=== PATIENT | female | born 1970 | race Caucasian/White ===

== ENCOUNTER 2018-02-17 14:41 | Observation (INO) | payer OTHER ==
[~2018-02-17] VITALS: Ht 162.6 cm; Wt 114.3 kg
[~2018-02-17 14:41] MED LIST: LEVOTHYROXINE0.05 MG; NORVASC 5 MG TAB5 MG PO; PROZAC40 MG PO; ZOFRAN ODT4 MG PO
[2018-02-17 14:49] VITALS: BP 155/97
[2018-02-17] MEDS ORDERED: LISINOPRIL-HCT1 EAC2 PO (14:51)
[2018-02-17] MEDS ORDERED: ASPIR 8181 MG PO (14:51)
[2018-02-17 15:36] LABS: ABSOLUTE BASOPHILS 0.2 thou/uL (0.0-0.2); ABSOLUTE EOSINOPHILS 0.1 thou/uL (0.0-0.7); ABSOLUTE LYMPHOCYTES 3.3 thou/uL (0.8-5.3); ABSOLUTE NEUTROPHILS 7.9 thou/uL (1.6-8.1); BASOPHILS 1.3 %; EOSINOPHILS 0.9 %; HEMATOCRIT 48.5 % (37.0-47.0); HEMOGLOBIN 16.6 gm/dL (12.0-15.0); LYMPHOCYTES 26.6 %; MCH 30.7 pg (26.0-34.0); MCHC 34.2 g/dL (28.0-37.0); MCV 89.8 fL (80.0-100.0); MPV 9.7 fl. (7.2-11.1); NUCLEATED RBCS 0 /100WBC; PLATELET COUNT* 244 thou/uL (150-400); POLYS 63.2 %; RDW-CV 13.8 % (10.5-14.5); WBC 12.5 thou/uL (4.0-11.0)
[2018-02-17 15:40] LABS: URINE BILIRUBIN NEGATIVE (Negative); URINE BLOOD NEGATIVE (Negative); URINE CLARITY CLEAR; URINE COLOR YELLOW; URINE GLUCOSE-RANDOM NEGATIVE (Negative); URINE KETONES NEGATIVE (Negative); URINE LEUKOCYTES-REFLEX NEGATIVE (Negative); URINE NITRITE-REFLEX NEGATIVE (Negative); URINE PROTEIN NEGATIVE (Negative); URINE SPECIFIC GRAVITY 1.015 (1.005-1.030)
[2018-02-17 15:40] LABS: ANION GAP 8 mmol/L (7-16); BUN 13 mg/dL (7-18); CALCIUM 8.5 mg/dL (8.5-10.1); CHLORIDE 97 mmol/L (98-107); CO2 26 mmol/L (21-32); GLUCOSE 86 mg/dL (70-99); POTASSIUM 3.6 mmol/L (3.5-5.1); SODIUM 131 mmol/L (136-145)
[2018-02-17 15:47] LABS: ALBUMIN 3.8 g/dL (3.4-5.0); ALKALINE PHOSPHATASE 92 U/L (46-116); SGOT 16 U/L (15-37); SGPT 32 U/L (30-65); TOTAL BILIRUBIN 0.5 mg/dL (<0.1-1.0); TOTAL PROTEIN 7.3 g/dL (6.4-8.2); TROPONIN-I LEVEL <0.06 ng/mL (<0.06)
[2018-02-17 16:22] LABS: AMP/METHAMP Negative (Negative); BARBITURATES Negative (Negative); BENZODIAZEPINES Negative (Negative); COCAINE Negative (Negative); METHADONE Negative (Negative); OPIATES Negative (Negative); PCP Negative (Negative); THC POSITIVE (Negative)
[2018-02-17 18:02] VITALS: BP 121/76
[2018-02-17 18:16] VITALS: BP 161/74
[2018-02-17 19:40] VITALS: BP 121/66
[2018-02-18] VITALS: BP 97/74
[2018-02-18 04:00] VITALS: BP 153/69
[2018-02-18 05:03] LABS: MCH 30.4 pg (26.0-34.0); MCHC 33.3 g/dL (28.0-37.0); MCV 91.4 fL (80.0-100.0); MPV 10.3 fl. (7.2-11.1); RBC 5.25 mil/uL (4.20-5.00); RDW-CV 13.9 % (10.5-14.5); WBC 9.5 thou/uL (4.0-11.0)
[2018-02-18 05:21] LABS: ALBUMIN 3.6 g/dL (3.4-5.0); ALKALINE PHOSPHATASE 92 U/L (46-116); ANION GAP 8 mmol/L (7-16); BUN 11 mg/dL (7-18); CALCIUM 8.6 mg/dL (8.5-10.1); CHLORIDE 100 mmol/L (98-107); CO2 30 mmol/L (21-32); CREATININE 0.9 mg/dL (0.6-1.3); GLUCOSE 86 mg/dL (70-99); MAGNESIUM 2.1 mg/dL (1.8-2.4); SGOT 19 U/L (15-37); SGPT 34 U/L (30-65); SODIUM 138 mmol/L (136-145); TOTAL BILIRUBIN 0.6 mg/dL (<0.1-1.0); TOTAL PROTEIN 6.5 g/dL (6.4-8.2); TROPONIN-I LEVEL <0.06 ng/mL (<0.06)
[2018-02-18 07:16] VITALS: BP 170/92
[2018-02-18] MEDS ORDERED: LISINOPRIL-HCT1 EAC2 PO (12:23)
[2018-02-18] MEDS ORDERED: ARMOUR THYROID30 M1 PO (12:23)
[2018-02-18 12:29] VITALS: BP 178/88
[2018-02-18 14:48] VITALS: BP 178/88
[2018-02-18 15:40] VITALS: BP 137/77
--- NOTE | 2018-02-18 17:06 | EXE ---
[place] [address] STRESS ECHOCARDIOGRAM Name: YANIV GIL [address]: [address]#: [id number] Admission: 02/17/18 Attend Phys: Nancy Guardado, Discharge: Date of : 70 Date of Service: 02/18/18 1706 Report #: [id number] THIS REPORT FOR: //name// APPROVED REPORT Study performed: 02/18/2018 12:27:40 Exam: Dobutamine Stress Echo Indication: Chest pain Patient Location: In-Patient Stress Nurse: Irena Reeves RN Room #: [facility] Supervising Physician: Damaso Donaldson MD Status: routine Ht: 5 ft 4 in HR: 63 bpm BP: 129/83 mmHg Rhythm: NSR Medical History Cardiac Risk Factors: FHX of CAD, Tobacco History (Current/Recent), HTN Procedure The patient underwent a Pharmacological Stress Test using Dobutamine. Blood pressure, heart rate, and EKG were monitored. An Echocardiogram was performed by solid waste technician in four stages in quad fashion. At peak stress, four selected images were obtained and placed side by side with resting images for comparison. Stress Test Details Stress Test: Pharmacological Stress Test using Dobutamine. HR Resting HR: 63 bpm Max Heart Rate (APMHR): 173 bpm Max HR Achieved: 156 bpm Target HR (85% APMHR): 147 bpm % of APMHR: 90 Recovery HR: 98 bpm HR response to stress: Normal HR response to stress BP Resting BP: 129/83 mmHg Max BP: 201/73 mmHg Recovery BP: 142/80 mmHg BP response to stress: [place] [address] STRESS ECHOCARDIOGRAM Name: YANIV GIL Room: [address]#: [id number] Admission: 02/17/18 Attend Phys: Nancy Guardado, Discharge: Date of : 70 Date of Service: 02/18/18 1706 Report #: [id number] stress. ECG Resting ECG: Sinus Rhythm Stress ECG: Sinus Tachycardia ST Change: None Arrhythmia: None Recovery ECG: Sinus Rhythm Recovery ST Change: None Recovery Arrhythmia: None Clinical Reason for Termination: Completed protocol Stress Symptoms: Chest pain, Nausea The patient tolerated dobutamine infusion without significant symptoms. Stress ECG Conclusion The baseline EKG show sinus rhythm with no significant ST segment or T-wave abnormalities. EKG's obtained during and post dobutamine infusion show no significant TS segment or T-wave changes when compared to baseline EKG. There were no significant stress induced arrythmias. Pre-Stress Echo The resting Echocardiogram showed normal left ventricular contractility with an estimated Ejection Fraction of about 55-60%. Post-Stress Echo The stress Echocardiogram showed normal left ventricular contractility with an estimated Ejection Fraction of about >70%. Clinical No clinical or ECG evidence for ischemia. Conclusion Clinical Response: Non-ischemic Stress ECG Response: Non-ischemic Stress Echo Images: Non-ischemic The left ventricle is normal in size and wall thickness in both the rest and stress images. Other Information Study Quality: Good <Conclusion> [place] [address] STRESS ECHOCARDIOGRAM Name: YANIV GIL Room: [address]#: [id number] Admission: 02/17/18 Attend Phys: Nancy Guardado, Discharge: Date of : 70 Date of Service: 02/18/181705 Report #: [id number] The left ventricle is normal in size and wall thickness in both the rest and stress images. <ELECTRONICALLY SIGNED> By: Damaso Donaldson MD, FACC 02/18/181705 05 05 Damaso Donaldson MD, FACC /INF
--- NOTE | 2018-02-20 15:26 | EKG ---
[place] [address] ELECTROCARDIOGRAM REPORT Name: YANIV GIL Room: [address] MR.#: [id number] Admission: 02/17/18 Attend Phys: Nancy Guardado MD Discharge: 02/18/18 Date of : 70 Report #: [id number] THIS REPORT FOR: //name// [facility] ED Test Date: 2018-02-17 Test Time: 14:49:59 Pat Name: YANIV GIL Department: Room: [facility] Gender: F Epic Cupid Specialists: : 1970 Requested By: Stephanie Pierre Order Number: [id number] MD: Damaso Donaldson Measurements Intervals [place] Rate: 79 P: 28 [place]: 167 QRS: 30 QRSD: 118 T: 60 QT: 401 QTc: 460 Interpretive Statements Sinus rhythm Incomplete right bundle branch block Low voltage, precordial leads Baseline wander in lead(s) II,III,aVF,V3,V5 Compared to ECG 06/14/2013 18:58:20 Incomplete right bundle-branch block now present Low QRS voltage now present shortly Electronically Signed On 02-20-2018 15:26:22 BANKING ANALYST by Damaso Donaldson [email or web address] <ELECTRONICALLY SIGNED> By: Damaso Donaldson MD, FACC 02/20/18 1526 1449 1449 Damaso Donaldson MD, FAC /EPI
--- NOTE | 2018-02-20 15:31 | EKG ---
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: : 1970 Requested By: Alem Anderson Order Number: [id number] Javy MD: Damaso Donaldson Measurements Intervals [place] Rate: 65 P: 2 [place]: 148 QRS: 16 QRSD: 108 T: 47 QT: 440 QTc: 458 Interpretive Statements Sinus rhythm Abnormal R-wave progression, early transition Compared to ECG 06/14/2013 18:58:20 No significant changes Electronically Signed On 02-20-2018 15:30:46 FINISHED CARPET INSPECTOR by Damaso Donaldson [email or web address] <ELECTRONICALLY SIGNED> By: Damaso Donaldson MD, [facility]GED WITH [facility] 02/20/18 1530 0 Damaso Donaldson MD, [facility] /EPI
== END 2018-02-18 17:29 | disposition home or self-care (01) ==
LOC: M.ERS 14:41 → M.2W 17:04 → M.TBA-ER 17:04 → M.2W 18:12
PROVIDERS: Nurse Practitioner Family; ADMIT Internal Medicine
DX: R07.89 Other chest pain (principal); I16.0 Hypertensive urgency; E03.9 Hypothyroidism, unspecified; F41.9 Anxiety disorder, unspecified; I10 Essential (primary) hypertension; F12.90 Cannabis use, unspecified, uncomplicated; F17.210 Nicotine dependence, cigarettes, uncomplicated; Z72.89 Other problems related to lifestyle; Z91.19 Patient's noncompliance with other medical treatment and regimen; Z79.899 Other long term (current) drug therapy; Z79.82 Long term (current) use of aspirin

== ENCOUNTER 2018-09-10 22:22 | Emergency (ER) | payer OTHER ==
[~2018-09-10] VITALS: Ht 162.6 cm; Wt 113.4 kg
[~2018-09-10 22:22] MED LIST changes: +ARMOUR THYROID30 M1 PO; +ASPIR 8181 MG PO; +LISINOPRIL-HCT1 EAC2 PO
[2018-09-10 23:18] LABS: ABSOLUTE BASOPHILS 0.2 thou/uL (0.0-0.2); ABSOLUTE EOSINOPHILS 0.3 thou/uL (0.0-0.7); ABSOLUTE LYMPHOCYTES 3.3 thou/uL (0.8-5.3); ABSOLUTE MONOCYTES 0.9 thou/uL (0.0-1.2); ABSOLUTE NEUTROPHILS 7.4 thou/uL (1.6-8.1); BASOPHILS 1.3 %; EOSINOPHILS 2.7 %; HEMATOCRIT 48.8 % (37.0-47.0); HEMOGLOBIN 16.4 gm/dL (12.0-15.0); LYMPHOCYTES 27.3 %; MCH 30.3 pg (26.0-34.0); MCHC 33.7 g/dL (28.0-37.0); MCV 89.9 fL (80.0-100.0); MONOCYTES 7.6 %; MPV 9.8 fl. (7.2-11.1); NUCLEATED RBCS 0 /100WBC; PLATELET COUNT* 233 thou/uL (150-400); POLYS 61.1 %; RBC 5.43 mil/uL (4.20-5.00); RDW-CV 13.9 % (10.5-14.5); WBC 12.2 thou/uL (4.0-11.0)
[2018-09-10 23:21] LABS: CALCIUM 8.8 mg/dL (8.5-10.1); CREATININE 1.1 mg/dL (0.6-1.3); POTASSIUM 3.7 mmol/L (3.5-5.1)
[2018-09-10 23:26] LABS: ALBUMIN 3.8 g/dL (3.4-5.0); TOTAL BILIRUBIN 0.3 mg/dL (<0.1-1.0); TOTAL PROTEIN 7.3 g/dL (6.4-8.2)
[2018-09-11] MEDS ORDERED: FLEXERIL PO (00:17)
[2018-09-11] MEDS ORDERED: NORCO 5-325 TA1 EAC1 PO (00:17)
[2018-09-11 00:35] VITALS: BP 195/117
== END 2018-09-11 00:35 | disposition home or self-care (01) ==
LOC: M.ERS 22:22
PROVIDERS: Family Medicine
DX: M43.6 Torticollis (principal); I10 Essential (primary) hypertension; E07.9 Disorder of thyroid, unspecified; F17.210 Nicotine dependence, cigarettes, uncomplicated; Z88.5 Allergy status to narcotic agent; Z88.8 Allergy status to other drugs, medicaments and biological substances

== ENCOUNTER 2019-03-13 06:57 | Emergency (ER) | payer OTHER ==
[~2019-03-13] VITALS: Ht 162.6 cm; Wt 113.4 kg
[~2019-03-13 06:57] MED LIST changes: +FLEXERIL PO; +NORCO 5-325 TA1 EAC1 PO
[2019-03-13 08:04] LABS: INFLUENZA A ANTIGEN Positive (Negative); INFLUENZA B ANTIGEN Negative (Negative)
[2019-03-13] MEDS ORDERED: PROMETHAZINE-P118 M1 PO (08:31)
[2019-03-13 09:18] VITALS: BP 156/69
== END 2019-03-13 09:20 | disposition home or self-care (01) ==
LOC: M.ERS 06:57
PROVIDERS: Personal Emergency Response Attendant
DX: J09.X2 Influenza due to identified novel influenza A virus with other respiratory manifestations (principal); I10 Essential (primary) hypertension; F17.210 Nicotine dependence, cigarettes, uncomplicated; Z88.8 Allergy status to other drugs, medicaments and biological substances

== ENCOUNTER 2019-10-17 15:47 | Observation (INO) | payer OTHER ==
[~2019-10-17] VITALS: Ht 162.6 cm; Wt 116.4 kg
--- NOTE | ~2019-10-17 | OP ---
[address] [address] OPERATIVE REPORT Name: YANIV GIL Room: [address] Raciel#: [id number] Admission: 10/17/19 Attend Phys: Asif Clayton DO Discharge: Date of : 70 Report #: [id number] THIS REPORT FOR: //name// cc: ELICEO Zamarripa family physician/PCP ELICEO Zamarripa family physician/PCP ~ THIS REPORT FOR: //name// CC: Asif Clayton [facility] physician/PCP DICTATED BY: Kathy Key DO DATE OF SERVICE: 10/21/2019 PREOPERATIVE DIAGNOSIS: Biliary dyskinesia. POSTOPERATIVE DIAGNOSIS: Biliary dyskinesia. PRIMARY SURGEON: Asif Clayton DO LEAD NET SOFTWARE DEVELOPER: Kathy Key DO, PGY3 SECOND INFORMATION ASSURANCE MANAGER: Eugenio ____, MS3 PROCEDURE PERFORMED: Laparoscopic cholecystectomy. ANESTHESIA: General and local. ESTIMATED BLOOD LOSS: 20 mL. SPECIMEN REMOVED: Gallbladder. COMPLICATIONS: None. INDICATIONS FOR PROCEDURE: The patient is a pleasant 49-year-old female that presented to the Emergency Department with complaint of abdominal pain. Pain began 3 days prior to admission mostly in her right upper quadrant. She did have exacerbation of her pain with p.o. intake. She had a workup that included a CT scan and ultrasound, which were unremarkable, so hepatobiliary scan was ordered. She was noted to have gallbladder ejection fraction of 13%. It was recommended that she undergo a laparoscopic cholecystectomy. The procedure, risks, benefits, and possible complications to include bleeding, infection, injury to surrounding structures, need for open procedure, need for additional surgery, hernia at an incision site, risks of anesthesia, and other risks of surgery were all discussed with the patient in great detail. She voiced complete understanding and wished to proceed with surgery. [place] [id number] OPERATIVE REPORT Name: YANIV GIL Room: [address] Farooq Schrader#: [id number] Admission: 10/17/19 Attend Phys: Asif Clayton DO Discharge: Date of : 70 Report #: [id number] DESCRIPTION OF PROCEDURE: Informed consent was obtained. The patient was taken to the operating room and placed supine on the operating room table. General endotracheal anesthesia was induced without difficulty. SCDs were placed on bilateral lower extremities. Preoperative antibiotics were given. Abdomen was prepped and draped in the standard sterile fashion. A timeout was performed to ensure correct patient and procedure. We began by making a vertical supraumbilical incision using a #11 blade scalpel. The incision was carried down through the subcutaneous tissues using electrocautery. - was used to dissect further down to the level of fascia. Fascia was scored with electrocautery. Fascia was grasped between 2 Kochers and elevated. The fascia was further incised using electrocautery. Peritoneum was entered bluntly using a hemostat. The 0 Vicryl stay sutures were placed on either side of the fascial opening in a doxirj-ht-nlysq fashion. A 5-mm Berlin trocar was inserted through our fascial opening. Abdomen was insufflated without difficulty. Laparoscopic camera was inserted and a sweep of the anterior abdominal contents was performed. There were no obvious abnormalities on our initial sweep of the anterior abdominal contents. The patient was placed in the reverse Trendelenburg position with the left side down. A subxiphoid 5 mm trocar was inserted under direct visualization. Two right upper quadrant 5 mm trocars were inserted under direct visualization. The assistant store manager sales then grasped the fundus of the gallbladder and retracted it superiorly and anteriorly. Pizarro pouch was easily identified, this was grasped and the peritoneum overlying. Emilio pouch was scored with electrocautery. A combination of blunt dissection and a small amount of electrocautery were used to open up the peritoneum along the lateral aspect of the gallbladder. Once this was done, we turned our attention to the medial aspect of the gallbladder. We also opened up the peritoneum along this side of the gallbladder muscle using blunt dissection. Prior to beginning this dissection, we did use immunofluorescence imaging to identify the gallbladder, the cystic duct and the common bile duct. These were easily visualized and delineated using immunofluorescence imaging. As we continued our dissection, a [place] dissector was used to help bluntly dissect away the fatty tissues from our cystic duct and cystic artery. Cystic artery was identified in the expected position just posterior to the cystic duct. As we continued our blunt dissection to free the artery and duct from surrounding tissues, we did have a small amount of bleeding from the cystic artery. This was grasped with a [place] dissector and clipped with a 5 mm clip gymnastics coach. We then turned our attention to our cystic duct. [place] dissector and suction sales representative raw fibers were used to bluntly dissect a window posterior to our cystic duct. Once this was done and we had cleared off our cystic plate, we had achieved our critical view of safety, we could see that there were 2 and only two structures coursing into the gallbladder. We then placed 2 clips proximally on the cystic duct and one clip distally. The cystic duct was transected using laparoscopic scissors. The gallbladder was then removed from the liver bed using electrocautery, ensuring hemostasis along the way. We did have some slight spillage of bile during this process. Suction sales representative raw fibers was used to copiously irrigate [place] [address] OPERATIVE REPORT Name: YANIV GIL Room: [address] Farooq Schrader#: [id number] Admission: 10/17/19 Attend Phys: Asif Clayton DO Discharge: Date of : 70 Report #: [id number]. Once the gallbladder was completely removed from the liver bed, it was placed within an EndoCatch bag. The liver edge was then re-elevated and inspected. It appeared to be hemostatic. Our clips were reinspected. There did not appear to be any leaking from our clips. Right upper quadrant was again copiously irrigated using the suction sales representative raw fibers. The patient was flattened out. The 2 right upper quadrant and subxiphoid 5 mm trocars were removed under direct visualization. Abdomen was desufflated without difficulty. A 5 mm trocar at the infraumbilical incision was removed as well as the gallbladder within the EndoCatch bag. The fascia at the supraumbilical incision was closed using 0 Vicryl suture in a kjnabx-qs-fxpeu fashion. Subcutaneous tissues were reapproximated using 3-0 Vicryl suture in a simple interrupted and inverted fashion. The skin was closed using 4-0 Monocryl suture in a running subcuticular fashion. The 5 mm trocar sites were closed using 4-0 Monocryl suture in a simple interrupted and inverted fashion. Approximately 30 mL of 0.5% Marcaine were used for local anesthesia. Abdomen was cleansed and dried. Dermabond was applied to each incision. The patient tolerated the procedure very well. She was allowed to awaken in the operating room and was transferred to the PACU in stable condition with plans to discharge home later today. By: [id number] Clayton DO /nt
[~2019-10-17 15:47] MED LIST changes: +PROMETHAZINE-P118 M1 PO
[2019-10-17 15:51] VITALS: BP 190/129
[2019-10-17 16:08] LABS: URINE BILIRUBIN NEGATIVE (Negative); URINE BLOOD TRACE (Negative); URINE CLARITY CLEAR; URINE COLOR YELLOW; URINE GLUCOSE-RANDOM NEGATIVE (Negative); URINE KETONES NEGATIVE (Negative); URINE LEUKOCYTES-REFLEX NEGATIVE (Negative); URINE NITRITE-REFLEX NEGATIVE (Negative); URINE PROTEIN NEGATIVE (Negative); URINE SPECIFIC GRAVITY 1.015 (1.005-1.030); URINE UROBILINOGEN 0.2 E.U./dl (0.2-1.0)
[2019-10-17 16:55] LABS: ABSOLUTE BASOPHILS 0.2 thou/uL (0.0-0.2); ABSOLUTE EOSINOPHILS 0.2 thou/uL (0.0-0.7); ABSOLUTE LYMPHOCYTES 2.6 thou/uL (0.8-5.3); ABSOLUTE NEUTROPHILS 8.7 thou/uL (1.6-8.1); BASOPHILS 1.2 %; EOSINOPHILS 1.3 %; HEMATOCRIT 46.2 % (37.0-47.0); HEMOGLOBIN 15.8 gm/dL (12.0-15.0); LYMPHOCYTES 20.7 %; MCHC 34.3 g/dL (28.0-37.0); MCV 90.3 fL (80.0-100.0); MONOCYTES 8.1 %; MPV 9.8 fl. (7.2-11.1); NUCLEATED RBCS 0 /100WBC; PLATELET COUNT* 230 thou/uL (150-400); POLYS 68.7 %; RBC 5.11 mil/uL (4.20-5.00); RDW-CV 13.6 % (10.5-14.5); WBC 12.7 thou/uL (4.0-11.0)
[2019-10-17 17:04] LABS: CALCIUM 8.6 mg/dL (8.5-10.1); CREATININE 1.1 mg/dL (0.6-1.3); POTASSIUM 3.8 mmol/L (3.5-5.1)
[2019-10-17 17:08] LABS: ALBUMIN 3.8 g/dL (3.4-5.0); TOTAL BILIRUBIN 0.4 mg/dL (<0.1-1.0); TOTAL PROTEIN 7.2 g/dL (6.4-8.2)
[2019-10-17 23:53] VITALS: BP 171/70
[2019-10-18 00:20] VITALS: BP 166/80
[2019-10-18 06:30] LABS: CALCIUM 7.9 mg/dL (8.5-10.1); POTASSIUM 3.6 mmol/L (3.5-5.1)
[2019-10-18 06:35] LABS: ABSOLUTE EOSINOPHILS 0.2 thou/uL (0.0-0.7); ABSOLUTE LYMPHOCYTES 2.3 thou/uL (0.8-5.3); ABSOLUTE MONOCYTES 0.7 thou/uL (0.0-1.2); ABSOLUTE NEUTROPHILS 4.6 thou/uL (1.6-8.1); ALBUMIN 3.6 g/dL (3.4-5.0); BASOPHILS 0.6 %; EOSINOPHILS 1.9 %; HEMATOCRIT 44.6 % (37.0-47.0); HEMOGLOBIN 15.2 gm/dL (12.0-15.0); LYMPHOCYTES 29.6 %; MCH 31.3 pg (26.0-34.0); MCV 91.9 fL (80.0-100.0); MONOCYTES 9.1 %; MPV 10.3 fl. (7.2-11.1); NUCLEATED RBCS 0 /100WBC; PLATELET COUNT* 210 thou/uL (150-400); POLYS 58.8 %; RBC 4.85 mil/uL (4.20-5.00); RDW-CV 13.8 % (10.5-14.5); TOTAL BILIRUBIN 0.4 mg/dL (<0.1-1.0); TOTAL PROTEIN 6.8 g/dL (6.4-8.2); WBC 7.9 thou/uL (4.0-11.0)
[2019-10-18 07:30] VITALS: BP 168/90
[2019-10-18 16:00] VITALS: BP 177/92
[2019-10-18 20:00] VITALS: BP 181/81
[2019-10-19 06:11] LABS: HEMATOCRIT 45.6 % (37.0-47.0); HEMOGLOBIN 15.6 gm/dL (12.0-15.0); MCH 31.2 pg (26.0-34.0); MCHC 34.1 g/dL (28.0-37.0); MCV 91.5 fL (80.0-100.0); MPV 10.4 fl. (7.2-11.1); RBC 4.99 mil/uL (4.20-5.00); RDW-CV 13.7 % (10.5-14.5); WBC 8.3 thou/uL (4.0-11.0)
[2019-10-19 06:27] LABS: ALBUMIN 3.8 g/dL (3.4-5.0); CALCIUM 8.1 mg/dL (8.5-10.1); CREATININE 0.9 mg/dL (0.6-1.3); TOTAL BILIRUBIN 0.5 mg/dL (<0.1-1.0); TOTAL PROTEIN 7.1 g/dL (6.4-8.2)
[2019-10-19 07:15] VITALS: BP 194/96
[2019-10-19 13:28] VITALS: BP 164/79
[2019-10-19 16:00] VITALS: BP 193/103
[2019-10-19 20:46] VITALS: BP 188/87
[2019-10-20] VITALS: BP 177/78
[2019-10-20 08:00] VITALS: BP 172/83
[2019-10-20 10:09] VITALS: BP 172/83
[2019-10-20 11:00] VITALS: BP 148/83
[2019-10-20 20:02] VITALS: BP 137/79
[2019-10-20 22:07] LABS: AMP/METHAMP Negative (Negative); BARBITURATES Negative (Negative); BENZODIAZEPINES Negative (Negative); COCAINE Negative (Negative); METHADONE Negative (Negative); OPIATES POSITIVE (Negative); PCP Negative (Negative); THC POSITIVE (Negative)
[2019-10-21 05:23] LABS: HEMATOCRIT 43.6 % (37.0-47.0); HEMOGLOBIN 15.2 gm/dL (12.0-15.0); MCH 31.5 pg (26.0-34.0); MCHC 34.9 g/dL (28.0-37.0); MCV 90.2 fL (80.0-100.0); MPV 10.2 fl. (7.2-11.1); RBC 4.84 mil/uL (4.20-5.00); RDW-CV 13.6 % (10.5-14.5); WBC 7.4 thou/uL (4.0-11.0)
[2019-10-21 05:43] LABS: ALBUMIN 3.6 g/dL (3.4-5.0); CALCIUM 8.5 mg/dL (8.5-10.1); MAGNESIUM 2.1 mg/dL (1.8-2.4); PHOSPHORUS* 2.9 mg/dL (2.5-4.9); POTASSIUM 3.9 mmol/L (3.5-5.1); TOTAL BILIRUBIN 0.7 mg/dL (<0.1-1.0); TOTAL PROTEIN 6.9 g/dL (6.4-8.2)
[2019-10-21 10:11] VITALS: BP 137/79
[2019-10-21 11:00] VITALS: BP 197/89
[2019-10-21 11:23] VITALS: BP 160/41
[2019-10-21 11:25] VITALS: BP 117/60
[2019-10-21 13:43] VITALS: BP 137/79
[2019-10-21] MEDS ORDERED: LISINOPRIL20 MG PO (13:51)
[2019-10-21] MEDS ORDERED: OXYCODONE HCL 55 MG PO (13:52)
[2019-10-21 14:12] VITALS: BP 137/79
--- NOTE | 2019-10-23 15:15 | EKG ---
[place] [address] ELECTROCARDIOGRAM REPORT Name: YANIV GIL Room: [address] M.R.#: [id number] Admission: 10/17/19 Attend Phys: Asif Clayton DO Discharge: 10/21/19 Date of : 70 Date of Service: 10/21/19 0251 Report #: [id number] THIS REPORT FOR: //name// [facility] Test Date: 2019-10-21 Test Time: 02:51:24 Pat Name: YANIV GIL Department: Room: [address] Gender: F General Manager: vazquez : 1970 Requested By: Asif Clayton Order Number: [id number] Reading MD: Eugenio Hernandez Measurements Intervals [place] Rate: 60 P: 31 [place]: 200 QRS: 18 QRSD: 98 T: 50 QT: 456 QTc: 456 Interpretive Statements Sinus rhythm Low voltage, precordial leads Abnormal R-wave progression, early transition Compared to ECG 02/18/2018 08:31:45 no change Electronically Signed On 10-23-2019 15:14:57 CDT by Eugenio Hernandez [email or web address] <ELECTRONICALLY SIGNED> By: Eugenio Hernandez MD, [facility] 10/23/19 1514 025 025 Eugenio Hernandez MD, [facility] /EPI
--- NOTE | 2019-10-24 14:07 | PATH ---
[address] [address] PATHOLOGY RPT PROCEDURE Name: YANIV GIL Room: [address] Farooq Schrader#: [id number] Admission: 10/17/19 Date of : 70 Discharge: 10/21/19 Report #: [id number] Path Case #: [id number] [facility] Accession Number: [id number] . 01 Material submitted: . gallbladder - GALLBLADDER . 01 Clinical history: . Biliary dyskinesia, abdominal pain . 02 Diagnosis: Gallbladder: - Chronic cholecystitis with cholesterolosis. (CORY:dago; 10/24/2019) [facility] [place] 10/24/2019 1251 Local . 02 Electronically signed: . Madhu Cueva MD, Pathologist NPI- [id number] . 01 Gross description: . The specimen is received in formalin, labeled "Yaniv Czolba, gallbladder". Received is an intact gallbladder measuring 6.9 x 2.8 x 2.8 cm in greatest dimensions displaying a blue-conrad, bile-stained serosal surface. Opening the specimen reveals a velvety, bile-stained mucosa displaying moderate, diffuse cholesterolosis, and with a gallbladder wall thickness of 0.1 cm. Calculi are not present, and no masses or lesions are noted grossly. Station Baggage Agent sections, to include the proximal margin, are submitted in cassette A1. (CAA; 10/23/2019) QAC/QAC 10/23/2019 1506 Local . 02 Pathologist provided ICD-10: K81.1, K82.4 . 02 CPT . 525549 Specimen Comment: A courtesy copy of this report has been sent to [phone] Specimen Comment: Report sent to Performed at: 01 [facility] [address], [place], [place] [id number] MD Shabbir Ramirez MD Phone: [phone] Performed at: [address] [place] [address] [address], [place], [place] [id number] MD Madhu Cueva MD Phone: [phone]
== END 2019-10-21 14:13 | disposition home or self-care (01) ==
LOC: M.ERS 15:47 → M.TBA-ER 22:03 → M.ORTHSURG 10-18 00:16
PROVIDERS: Internal Medicine; Personal Emergency Response Attendant; Physician Assistant; ADMIT Surgery; ATTEND Surgery
DX: Z03.818 Encounter for observation for suspected exposure to other biological agents ruled out (principal); K82.8 Other specified diseases of gallbladder; K81.9 Cholecystitis, unspecified; I10 Essential (primary) hypertension; F17.210 Nicotine dependence, cigarettes, uncomplicated; E66.01 Morbid (severe) obesity due to excess calories; Z68.41 Body mass index [BMI] 40.0-44.9, adult

== ENCOUNTER 2021-03-07 17:58 | Emergency (ER) | payer OTHER ==
[~2021-03-07] VITALS: Ht 162.6 cm; Wt 127.0 kg
[~2021-03-07 17:58] MED LIST changes: +LISINOPRIL20 MG PO; +OXYCODONE HCL 55 MG PO
[2021-03-07 18:29] VITALS: BP 219/120
--- NOTE | 2021-03-08 09:31 | EKG ---
[place] [address] ELECTROCARDIOGRAM REPORT Name: LIMALEAHJASMIN VANESSAYANIV Omer Room: [facility]#: [id number] Admission: 03/07/21 Attend Phys: Discharge: 03/07/21 Date of : 70 Date of Service: 03/07/211836 Report #: [id number] THIS REPORT FOR: //name// [facility] ED Test Date: 2021-03-07 Test Time: 18:37:46 Pat Name: YANIV GIL Department: Room: Gender: Graphic Technician: CARY : 1970 Requested By: Brittany Morin Order Number: [id number] MD: John Jorge Measurements Intervals [place] Rate: 98 P: 72 [place]: 173 QRS: -9 QRSD: 106 T: 48 QT: 381 QTc: 487 Interpretive Statements Sinus rhythm Probable left atrial enlargement Low voltage, precordial leads RSR' in V1 or V2, right VCD or RVH Borderline prolonged QT interval Compared to ECG 10/21/2019 02:51:24 Right ventricular hypertrophy now present RSR' in V1 or V2 now present Electronically Signed On 03-08-2021 9:31:08 TRUCKING MANAGER by John Jorge [email or web address] <ELECTRONICALLY SIGNED> By: Xin Jorge MD, [facility] 03/08/2131 36 36 Xin Jorge MD, [facility] /EPI
[2021-03-08] MEDS ORDERED: OXYCODONE HCL 55 MG PO (13:00)
== END 2021-03-07 21:05 | disposition left against medical advice (07) ==
LOC: M.ERS 17:58
DX: R10.9 Unspecified abdominal pain (principal); Z53.21 Procedure and treatment not carried out due to patient leaving prior to being seen by health care provider

== ENCOUNTER 2021-03-08 06:07 | Observation (INO) | payer OTHER ==
[~2021-03-08] VITALS: Ht 162.6 cm; Wt 127.0 kg
[2021-03-08 06:22] VITALS: BP 187/106
[2021-03-08 06:30] LABS: URINE BILIRUBIN NEGATIVE (Negative); URINE BLOOD TRACE (Negative); URINE CLARITY CLEAR; URINE COLOR YELLOW; URINE GLUCOSE-RANDOM NEGATIVE (Negative); URINE KETONES NEGATIVE (Negative); URINE LEUKOCYTES-REFLEX NEGATIVE (Negative); URINE NITRITE-REFLEX NEGATIVE (Negative); URINE PROTEIN 1+ (Negative); URINE SPECIFIC GRAVITY 1.015 (1.005-1.030); URINE UROBILINOGEN 0.2 E.U./dl (0.2-1.0)
[2021-03-08 06:43] LABS: ABSOLUTE BASOPHILS 0.2 thou/uL (0.0-0.2); ABSOLUTE LYMPHOCYTES 2.7 thou/uL (0.8-5.3); ABSOLUTE MONOCYTES 1.4 thou/uL (0.0-1.2); EOSINOPHILS 0.1 %; HEMATOCRIT 47.3 % (37.0-47.0); HEMOGLOBIN 15.9 gm/dL (12.0-15.0); LYMPHOCYTES 14.8 %; MCH 29.9 pg (26.0-34.0); MCHC 33.5 g/dL (28.0-37.0); MCV 89.3 fL (80.0-100.0); MONOCYTES 7.5 %; NUCLEATED RBCS 0 /100WBC; PLATELET COUNT* 264 thou/uL (150-400); POLYS 76.6 %; RDW-CV 13.7 % (10.5-14.5); WBC 18.3 thou/uL (4.0-11.0)
[2021-03-08 06:55] LABS: CALCIUM 8.8 mg/dL (8.5-10.1); POTASSIUM 3.7 mmol/L (3.5-5.1)
[2021-03-08 06:59] LABS: TOTAL BILIRUBIN 0.8 mg/dL (<0.1-1.0); TOTAL PROTEIN 7.9 g/dL (6.4-8.2)
[2021-03-08 10:37] VITALS: BP 130/75
[2021-03-08] MEDS ORDERED: OXYCODONE HCL 55 MG PO (13:00)
[2021-03-08 13:47] VITALS: BP 130/75
[2021-03-08 13:59] VITALS: BP 130/75
--- NOTE | 2021-03-17 10:06 | PATH ---
[address] [address] PATHOLOGY RPT PROCEDURE Name: LOUISEJASMINYANIV Omer Room: [address] Raciel#: [id number] Admission: 03/08/21 Date of : 70 Discharge: 03/08/21 Report #: [id number] Path Case #: [id number] L[facility] Accession Number: [id number] . 01 Material submitted: . appendix - APPENDIX . 01 Clinical history: . ACUTE APPENDICITIS . 02 Diagnosis: Vermiform appendix, excision: - Acute appendicitis, with transmural inflammation and associated acute serositis. - Fecalith. - Negative for malignancy. (MICHELLE:fernando; 03/11/2021) [facility] 03/13/2021 1349 Local . 02 Electronically signed: . Abram Young MD, Pathologist NPI- [id number] . 01 Gross description: . Fixative: Formalin Labeled: Appendix Appendix length: 6.3 cm Appendix diameter: 1.5 cm Mesoappendix: 5.5 x 2.4 x 1.8 cm Proximal margin: Closed with a staple line Serosa: Gauthier-red with extensive gauthier-white purulent exudate Cut surface: Displays an area of compacted fecal material in the proximal appendix measuring 1.5 x 0.6 x 0.6 cm Luminal diameter: Up to 0.6 cm Perforation: No Lesions/abnormalities: None identified A1 distal tip, trisected A2 proximal margin (inked black) and mid appendix (C; 03/10/2021) [facility] 03/10/2021 1446 Local . 02 Pathologist provided ICD-10: K35.80, K38.1 . 02 CPT . 634715 Specimen Comment: A courtesy copy of this report has been sent to [phone] Specimen Comment: Report sent to Specimen Comment: A duplicate report has been [place] [address] PATHOLOGY RPT PROCEDURE Name: YANIV GIL Room: [address] Raciel#: [id number] Admission: 03/08/21 Date of : 70 Discharge: 03/08/21 Report #: [id number] Path Case #: [id number] updates. [facility]formed at: [facility] [address] [id number] MD Tapan Barrios MD Phone: [phone] Performed at: [address] [id number] MD Jesus Thompson MD Phone: [phone]
--- NOTE | 2021-03-18 10:01 | OP ---
[address] [address] OPERATIVE REPORT Name: YANIV GIL Room: [address] Farooq Schrader#: [id number] Admission: 03/08/21 Attend Phys: Asif Clayton DO Discharge: 03/08/21 Date of : 70 Report #: [id number] THIS REPORT FOR: cc: FAM - No family physician/PCP FAM - No family physician/PCP Asif Clayton DO ~ DATE OF SURGERY: 03/08/2021 PREOPERATIVE DIAGNOSIS: Acute appendicitis. POSTOPERATIVE DIAGNOSIS: Acute appendicitis. PROCEDURE: Laparoscopic appendectomy. SURGEON: Asif Clayton DO. SUPERVISOR HANGING AND TRIMMING: Ray Vásquez DO, PGY2 resident. ANESTHESIA: General endotracheal. ESTIMATED BLOOD LOSS: Less than 20 mL. COMPLICATIONS: None. DESCRIPTION OF PROCEDURE: After obtaining proper consents and discussing risks and complications with the patient, she was taken to the operating room, laid in the supine position, administered general anesthesia. She was then prepped and draped in the usual sterile fashion. A timeout was performed. We confirmed the appropriate patient and procedure. Preoperative antibiotics had been given. SCDs were in place. We then made a small supraumbilical skin incision with an #11 scalpel blade. This was carried down through the skin into the subcutaneous tissue using electrocautery for hemostasis. Once the fascia was encountered, it was incised along the midline, grasped and elevated with Lizeth clamps. The peritoneum was then bluntly opened using a hemostat. We then placed 2 zdmyrh-fe-wpiwt sutures in the fascia to secure the Berlin trocar, which was then inserted and insufflation was begun. Once insufflation was complete, full visual inspection of the anterior abdominal organs was performed. This revealed no significant gross abnormalities other than a large amount of intraperitoneal fat. There was no evidence of any purulent fluid at this point. We then placed the patient in Trendelenburg position. I then placed a 5 mm suprapubic trocar. Once doing this, I was able to push the small bowel up out of the pelvis and we did identify some purulent fluid in the pelvis and along the right pericolic gutter. We could identify the cecum. There were some omental adhesions to the abdominal wall in the area of the cecum. I then placed another 12 mm trocar in the left lower quadrant and used the Harmonic scalpel to take down the adhesions along the abdominal wall. I was then able to identify the appendix, [place] [address] OPERATIVE REPORT Name: YANIV GIL Room: [address] [id number] Admission: 03/08/21 Attend Phys: Asif Clayton DO Discharge: 03/08/21 Date of : 70 Report #: [id number] extending down into the pelvis. I then grasped and elevated the appendix. We sequentially clamped and divided the mesoappendix using the Harmonic scalpel until the appendix was only attached at its base. Once it was just attached at its base, I used an Endo-MERLE 45 mm purple staple load to go across the base of the appendix. The appendiceal stump was then checked for any leak or bleeding, there was none identified. There was no bleeding identified from the mesoappendix either. We then placed the appendix into an Endopouch. We then copiously irrigated the abdominal cavity, specifically in the pelvis. We lifted up the uterus and irrigated in the area of the cul-de-sac of John as well as along the entire right pericolic gutter and then at the end of irrigation, we also checked the appendiceal stump and mesoappendiceal stump again for any leak or bleeding, there was none identified. We then stopped the insufflation. The trocars were all removed. We then removed the appendix through the umbilical incision. The umbilical fascia was closed using 4 interrupted 0 Vicryl sutures in a oigkdn-ja-chdlx fashion. The skin incisions were all closed using 4-0 Monocryl after being injected with 0.5% Marcaine without epinephrine. The patient was awakened in the operating room and transported to recovery room in stable condition. <ELECTRONICALLY SIGNED> By: Asif Clayton DO 03/18/21 1001 1206 1321Acarla Clayton DO /nt
== END 2021-03-08 14:30 | disposition home or self-care (01) ==
LOC: M.SUR 06:07 → M.ERS 06:07 → M.TBA-ER 11:17
PROVIDERS: Emergency Medicine; ADMIT Surgery; ATTEND Surgery
DX: K35.80 Unspecified acute appendicitis (principal); Z20.822 Contact with and (suspected) exposure to COVID-19; I10 Essential (primary) hypertension; R11.2 Nausea with vomiting, unspecified; F17.200 Nicotine dependence, unspecified, uncomplicated; E87.1 Hypo-osmolality and hyponatremia; Z90.49 Acquired absence of other specified parts of digestive tract; Z88.8 Allergy status to other drugs, medicaments and biological substances

== ENCOUNTER 2021-03-15 04:11 | Emergency (ER) | payer OTHER ==
[~2021-03-15] VITALS: Ht 162.6 cm; Wt 127.0 kg
[2021-03-15 04:42] LABS: ABSOLUTE BASOPHILS 0.1 thou/uL (0.0-0.2); ABSOLUTE EOSINOPHILS 0.1 thou/uL (0.0-0.7); ABSOLUTE LYMPHOCYTES 2.4 thou/uL (0.8-5.3); ABSOLUTE MONOCYTES 1.1 thou/uL (0.0-1.2); ABSOLUTE NEUTROPHILS 10.1 thou/uL (1.6-8.1); BASOPHILS 0.9 %; EOSINOPHILS 0.8 %; HEMATOCRIT 45.9 % (37.0-47.0); HEMOGLOBIN 15.2 gm/dL (12.0-15.0); LYMPHOCYTES 17.2 %; MCH 29.4 pg (26.0-34.0); MCHC 33.1 g/dL (28.0-37.0); MCV 88.6 fL (80.0-100.0); MPV 8.9 fl. (7.2-11.1); NUCLEATED RBCS 0 /100WBC; PLATELET COUNT* 302 thou/uL (150-400); POLYS 73.1 %; RBC 5.18 mil/uL (4.20-5.00); RDW-CV 13.4 % (10.5-14.5); WBC 13.8 thou/uL (4.0-11.0)
[2021-03-15 05:14] LABS: CALCIUM 8.4 mg/dL (8.5-10.1); POTASSIUM 4.1 mmol/L (3.5-5.1)
[2021-03-15 05:17] LABS: ALBUMIN 3.3 g/dL (3.4-5.0); MAGNESIUM 2.7 mg/dL (1.8-2.4); TOTAL BILIRUBIN 0.4 mg/dL (<0.1-1.0); TOTAL PROTEIN 7.4 g/dL (6.4-8.2)
[2021-03-15] MEDS ORDERED: AUGMENTIN 500-1 EACH PO (06:13)
[2021-03-15 06:45] VITALS: BP 135/64
[2021-03-15] MEDS ORDERED: PERCOCET 5-3251 EACH PO (06:49)
== END 2021-03-15 06:46 | disposition home or self-care (01) ==
LOC: M.ERS 04:11
PROVIDERS: Personal Emergency Response Attendant
DX: L02.211 Cutaneous abscess of abdominal wall (principal); I10 Essential (primary) hypertension; F17.210 Nicotine dependence, cigarettes, uncomplicated; Z48.89 Encounter for other specified surgical aftercare; Z90.49 Acquired absence of other specified parts of digestive tract; Z88.8 Allergy status to other drugs, medicaments and biological substances

== ENCOUNTER 2021-04-26 15:52 | Inpatient (IN) | payer OTHER ==
[~2021-04-26] VITALS: Ht 162.6 cm; Wt 127.0 kg
[~2021-04-26 15:52] MED LIST changes: +AUGMENTIN 500-1 EACH PO; +PERCOCET 5-3251 EACH PO
[2021-04-26 16:00] VITALS: BP 191/101
[2021-04-26 17:52] LABS: ABSOLUTE BASOPHILS 0.1 thou/uL (0.0-0.2); ABSOLUTE EOSINOPHILS 0.2 thou/uL (0.0-0.7); ABSOLUTE LYMPHOCYTES 2.8 thou/uL (0.8-5.3); ABSOLUTE MONOCYTES 1.3 thou/uL (0.0-1.2); ABSOLUTE NEUTROPHILS 9.8 thou/uL (1.6-8.1); BASOPHILS 0.8 %; EOSINOPHILS 1.1 %; HEMATOCRIT 42.6 % (37.0-47.0); HEMOGLOBIN 14.2 gm/dL (12.0-15.0); LYMPHOCYTES 19.5 %; MCH 29.2 pg (26.0-34.0); MCHC 33.3 g/dL (28.0-37.0); MCV 87.6 fL (80.0-100.0); MONOCYTES 9.1 %; MPV 9.9 fl. (7.2-11.1); NUCLEATED RBCS 0 /100WBC; PLATELET COUNT* 208 thou/uL (150-400); POLYS 69.5 %; RBC 4.86 mil/uL (4.20-5.00); RDW-CV 14.5 % (10.5-14.5); WBC 14.2 thou/uL (4.0-11.0)
[2021-04-26 17:55] LABS: URINE BILIRUBIN NEGATIVE (Negative); URINE BLOOD NEGATIVE (Negative); URINE CLARITY CLEAR; URINE COLOR YELLOW; URINE GLUCOSE-RANDOM NEGATIVE (Negative); URINE KETONES TRACE (Negative); URINE LEUKOCYTES-REFLEX NEGATIVE (Negative); URINE NITRITE-REFLEX NEGATIVE (Negative); URINE PROTEIN NEGATIVE (Negative); URINE SPECIFIC GRAVITY >= 1.030 (1.005-1.030); URINE UROBILINOGEN 0.2 E.U./dl (0.2-1.0)
[2021-04-26 18:04] LABS: CALCIUM 8.5 mg/dL (8.5-10.1); CREATININE 1.1 mg/dL (0.6-1.3); POTASSIUM 3.5 mmol/L (3.5-5.1)
[2021-04-26 18:09] LABS: ALBUMIN 3.7 g/dL (3.4-5.0); TOTAL BILIRUBIN 0.4 mg/dL (<0.1-1.0); TOTAL PROTEIN 7.2 g/dL (6.4-8.2)
[2021-04-27 00:16] VITALS: BP 160/88
[2021-04-27 05:45] LABS: HEMATOCRIT 40.1 % (37.0-47.0); HEMOGLOBIN 13.2 gm/dL (12.0-15.0); MCH 29.5 pg (26.0-34.0); MCV 89.4 fL (80.0-100.0); RBC 4.49 mil/uL (4.20-5.00); RDW-CV 14.5 % (10.5-14.5); WBC 8.4 thou/uL (4.0-11.0)
[2021-04-27 06:03] LABS: CALCIUM 7.9 mg/dL (8.5-10.1); CREATININE 0.9 mg/dL (0.6-1.3)
--- NOTE | 2021-04-27 08:16 | EKG ---
[place] [address] ELECTROCARDIOGRAM REPORT Name: YANIV GIL Room: [address] M.R.#: [id number] Admission: 04/26/21 Attend Phys: Angeles Garcia Discharge: Date of : 70 Date of Service: 04/26/21 1851 Report #: [id number] THIS REPORT FOR: //name// [facility] ED Test Date: 2021-04-26 Test Time: 18:51:38 Pat Name: YANIV GIL Department: Room: [facility] Gender: F Supervisor [employer]: HAI : [id number] Requested By: Rosy Myers Order Number: [id number] MD: Damaso Donaldson Measurements Intervals [place] Rate: 75 P: 57 [place]: 200 QRS: 11 QRSD: 109 T: 36 QT: 427 QTc: 477 Interpretive Statements Sinus rhythm Probable left atrial enlargement Low voltage, precordial leads RSR' in V1 or V2, right VCD or RVH Compared to ECG 03/07/2021 18:37:46 No significant changes Electronically Signed On 04-27-2021 8:15:58 [employer]TE[employer]IGENCE [employer]CHITECT by Damaso Donaldson [email or web address] <ELECTRONICALLY SIGNED> By: Damaso Donaldson MD, FACC 04/27/21 0815 50 50 Damaso Donaldson MD, FACC /EPI
[2021-04-27 08:43] VITALS: BP 197/78
[2021-04-27 12:43] VITALS: BP 188/77
[2021-04-27 16:43] VITALS: BP 173/91
[2021-04-27 20:45] VITALS: BP 175/84
[2021-04-28] VITALS (7 sets, daily range): BP systolic 150–197; BP diastolic 84–93
[2021-04-28 04:11] LABS: ABSOLUTE EOSINOPHILS 0.1 thou/uL (0.0-0.7); ABSOLUTE LYMPHOCYTES 2.1 thou/uL (0.8-5.3); ABSOLUTE MONOCYTES 0.7 thou/uL (0.0-1.2); ABSOLUTE NEUTROPHILS 4.8 thou/uL (1.6-8.1); BASOPHILS 0.3 %; EOSINOPHILS 1.6 %; HEMATOCRIT 39.3 % (37.0-47.0); HEMOGLOBIN 12.8 gm/dL (12.0-15.0); LYMPHOCYTES 27.4 %; MCH 29.1 pg (26.0-34.0); MCHC 32.7 g/dL (28.0-37.0); MONOCYTES 9.5 %; MPV 10.2 fl. (7.2-11.1); NUCLEATED RBCS 0 /100WBC; PLATELET COUNT* 194 thou/uL (150-400); POLYS 61.2 %; RBC 4.41 mil/uL (4.20-5.00); RDW-CV 14.7 % (10.5-14.5); WBC 7.8 thou/uL (4.0-11.0)
[2021-04-28 04:32] LABS: CALCIUM 8.1 mg/dL (8.5-10.1); CREATININE 0.8 mg/dL (0.6-1.3); POTASSIUM 3.7 mmol/L (3.5-5.1)
[2021-04-28 19:24] LABS: AMP/METHAMP Negative (Negative); BARBITURATES Negative (Negative); BENZODIAZEPINES Negative (Negative); COCAINE Negative (Negative); METHADONE Negative (Negative); OPIATES POSITIVE (Negative); PCP Negative (Negative); THC POSITIVE (Negative)
[2021-04-29] VITALS: BP 151/83
[2021-04-29 05:01] LABS: HEMATOCRIT 40.5 % (37.0-47.0); HEMOGLOBIN 13.6 gm/dL (12.0-15.0); MCH 29.4 pg (26.0-34.0); MCHC 33.5 g/dL (28.0-37.0); MCV 87.7 fL (80.0-100.0); MPV 9.8 fl. (7.2-11.1); RBC 4.62 mil/uL (4.20-5.00); RDW-CV 14.6 % (10.5-14.5); WBC 7.6 thou/uL (4.0-11.0)
[2021-04-29 05:10] LABS: CALCIUM 8.2 mg/dL (8.5-10.1); CREATININE 0.8 mg/dL (0.6-1.3); POTASSIUM 3.6 mmol/L (3.5-5.1)
[2021-04-29 08:00] VITALS: BP 180/104
[2021-04-29 12:30] VITALS: BP 198/89
[2021-04-29 16:16] VITALS: BP 178/91
[2021-04-29 20:50] VITALS: BP 161/88
[2021-04-30] VITALS: BP 156/92
[2021-04-30 08:00] VITALS: BP 161/92
[2021-04-30 09:42] LABS: ABSOLUTE BASOPHILS 0.1 thou/uL (0.0-0.2); ABSOLUTE EOSINOPHILS 0.1 thou/uL (0.0-0.7); ABSOLUTE LYMPHOCYTES 1.8 thou/uL (0.8-5.3); ABSOLUTE MONOCYTES 0.6 thou/uL (0.0-1.2); ABSOLUTE NEUTROPHILS 5.7 thou/uL (1.6-8.1); BASOPHILS 0.8 %; EOSINOPHILS 0.8 %; HEMATOCRIT 43.3 % (37.0-47.0); HEMOGLOBIN 14.3 gm/dL (12.0-15.0); LYMPHOCYTES 21.8 %; MCH 29.5 pg (26.0-34.0); MCHC 32.9 g/dL (28.0-37.0); MCV 89.6 fL (80.0-100.0); MONOCYTES 7.7 %; MPV 9.6 fl. (7.2-11.1); NUCLEATED RBCS 0 /100WBC; PLATELET COUNT* 232 thou/uL (150-400); POLYS 68.9 %; RBC 4.83 mil/uL (4.20-5.00); RDW-CV 14.5 % (10.5-14.5); WBC 8.3 thou/uL (4.0-11.0)
[2021-04-30 09:54] LABS: ALBUMIN 3.7 g/dL (3.4-5.0); CALCIUM 8.5 mg/dL (8.5-10.1); POTASSIUM 3.9 mmol/L (3.5-5.1); TOTAL BILIRUBIN 0.5 mg/dL (<0.1-1.0); TOTAL PROTEIN 7.1 g/dL (6.4-8.2)
[2021-04-30] MEDS ORDERED: AMOX TR-K CLV1 EAC4 PO (15:00)
[2021-04-30] MEDS ORDERED: LOSARTAN POTASS50 MG PO (15:00)
[2021-04-30] MEDS ORDERED: CLONIDINE1 EACH TRANSDERM (15:00)
[2021-04-30 15:10] VITALS: BP 161/92
[2021-04-30 16:29] VITALS: BP 158/86
== END 2021-04-30 17:44 | disposition home or self-care (01) | DRG 603 ==
LOC: M.ERS 15:52 → M.2W 19:52 → M.TBA-ER 19:52 → M.2W 04-28 00:41
PROVIDERS: Internal Medicine; Student in an Organized Health Care Education/Training Program; Surgery; ADMIT Internal Medicine; ATTEND Internal Medicine
PROC: 0J980ZZ Drainage of Abdomen Subcutaneous Tissue and Fascia, Open Approach (ICD-10-PCS; principal; 2021-04-26)
DX: L02.211 Cutaneous abscess of abdominal wall (principal); Z68.42 Body mass index [BMI] 45.0-49.9, adult; E66.01 Morbid (severe) obesity due to excess calories; I16.0 Hypertensive urgency; Z20.822 Contact with and (suspected) exposure to COVID-19; Z88.8 Allergy status to other drugs, medicaments and biological substances; L91.0 Hypertrophic scar; Z87.891 Personal history of nicotine dependence; I10 Essential (primary) hypertension